=== PATIENT | female | born 1965 | race Caucasian/White ===

== ENCOUNTER 2017-06-21 09:16 | Observation (INO) | payer MEDICAID, SELFPAY ==
[2017-06-21] MEDS ORDERED: diphenhydrAMINE HCl 50 MG/ML 1 ML VIAL ONE (09:54)
[2017-06-21] MEDS ORDERED: Ondansetron HCl/PF 4 MG/2 ML Vial ONE (10:02)
[2017-06-21] MEDS ORDERED: Famotidine/PF 20 mg/2ml Vial ONE (10:03)
[2017-06-21] MEDS ORDERED: Prochlorperazine 10 MG/2 ML VIAL ONE (10:03)
[2017-06-21 10:06] LABS: Red Blood Cell (RBC) Count 4.76 mill/uL (4.20-5.40)
[2017-06-21 10:15] LABS: Lactic Acid - Sepsis 3.8 mmol/L (0.5-2.2)
[2017-06-21 10:19] LABS: ALT (SGPT) 12 U/L (8-55); AST (SGOT) 12 U/L (5-34); Alkaline Phosphatase 61 U/L (40-150); Anion Gap 18 mmol/L (10-20); BUN (Urea Nitrogen) 10 mg/dL (9.8-20.1); Bilirubin, Total 0.4 mg/dL (0.2-1.2); Calc. Creatinine Clearance 0 mL/min (70-130); Calcium 10.1 mg/dL (7.8-10.44); Carbon Dioxide 21 mmol/L (22-29); Chloride 107 mmol/L (98-107); Estimated GFR-MDRD 68; Lipase 12 U/L (8-78); Protein, Total 7.4 g/dL (6.0-8.3); Troponin I Less than 0.010 ng/mL (< 0.028)
[2017-06-21 10:21] LABS: Band 6 % (5-11); Neutrophil 85 % (42-75)
--- NOTE | 2017-06-21 11:17 | CT ---
CT ABDOMEN AND PELVIS WITHOUT CONTRAST: Date: 06/21/17 COMPARISON: 04/29/17. HISTORY: Abdominal pain with nausea and vomiting. Patient has a history of irritable bowel syndrome and gastr oparesis. TECHNIQUE: Multiple contiguous axial images were obtained in a CT with contrast. Coronal reformats were perform ed. FINDINGS: The patient is status post cholecystectomy. The liver, kidneys, adrenal glands, spleen, and pancreas are unremarkable, although evaluation is limited on this noncontrast examination. The reproductive organs are unremarkable. The large and small bowel are unremarkable. The appendix i s normal. No abdominal or pelvic lymphadenopathy seen. Degenerative changes are seen in the spine. The abdominal wall soft tissues and visualized inferior thorax are unremarkable. IMPRESSION: No evidence of acute intra-abdominal/pelvic abnormality. POS: [facility]
[2017-06-21 11:44] LABS: Bilirubin Small (Negative); Blood, Urine Trace (Negative); Glucose, Urine (Dipstick) Negative (Negative); Ketone, Urine 15 mg/dL (Negative); Nitrite Negative (Negative); Protein, Urine (Dipstick) 30 mg/dL (Neg-Trace)
[2017-06-21 11:53] LABS: RBC/HPF 0-3 HPF (0-3); WBC/HPF 0-3 HPF (0-3)
[2017-06-21 11:54] LABS: Bacteria/HPF 2+ HPF (None Seen)
[2017-06-21] MEDS ORDERED: Lorazepam 2 MG/ML VIAL ONE ×2 (12:03→13:18)
[2017-06-21 14:25] VITALS: BMI 41.7
[2017-06-21] MEDS ORDERED: Dextrose 5 %-0.45 % NaCl 1,000 ML IV SCH (14:30)
[2017-06-21] MEDS ORDERED: Acetaminophen 650 MG Suppository PR PRN (14:30)
[2017-06-21] MEDS ORDERED: Zolpidem Tartrate 5 MG TAB PO PRN (14:30)
[2017-06-21] MEDS ORDERED: Ondansetron HCl/PF 4 MG/2 ML Vial IVP PRN ×2 (14:30→16:00)
[2017-06-21] MEDS ORDERED: Metoclopramide HCl 10 MG/2 ML VIAL IVP PRN (14:33)
[2017-06-21] MEDS ORDERED: Promethazine HCl 25 MG SUPP PR PRN (14:34)
--- NOTE | 2017-06-21 15:30 | HP ---
PRIMARY CARE PROVIDER: Jarvis Brooke M.D. CHIEF COMPLAINT: Referred to [facility] by [facility] with intractable nausea and vomiting. HISTORY OF PRESENT ILLNESS: The patient started vomiting at 4:00 a.m. this morning. No hematemesis . She says she has generalized abdominal discomfort. She states her last bowel movement was 5 days ago, there was no blood. She states she feels hot and cold, but there is no documented fever, swea ts, or chills. She states she has these spells at least once a week, sometimes they last a few bairon deidra, sometimes few hours, sometimes longer. She has had them on a frequent basis since she was 12 y ears old. PAST MEDICAL HISTORY: No firm diagnosis. MEDICATIONS: She has taken Reglan as an outpatient, but discontinued it because of cost. She has t aken promethazine 25 mg q.6 hours, Zofran oral dissolving tablets 4 mg every 6 hours, metoclopramide 10 mg 3 times a day p.r.n. in the past. ALLERGIES: IODINATED CONTRAST. PAST SURGICAL HISTORY: Two surgeries on right ankle, cholecystectomy, two C-sections. FAMILY HISTORY: Mother is alive, present at bedside, diabetes mellitus. Father, no history. Broth er, one has lymphedema. She has a sister who in an MVA that was according to the mother, cocai ne-related. SOCIAL HISTORY: The patient is , smokes half a pack a day, drinks no alcohol, states she us es occasional weed for her stomach. REVIEW OF SYSTEMS: General: No fainting or headache, but she does have lightheadedness on arising. Eyes: No blurred vision, double vision or flashing lights. Ear, Nose and Throat: No ear pain or drainage. No nasal bleeding. No trouble swallowing. Cardiac: No chest pain, orthopnea or paroxy smal nocturnal dyspnea. Respirations: She gets a cough with her nausea and vomiting. She gets pascale rtness of breath with that, otherwise no wheezing or asthma. Gastrointestinal: See present illness . Genitourinary: No hematuria or dysuria. Musculoskeletal: She states her legs swell from the ri ght occasionally. No pain in her muscles. Neurologic: No strokes, seizures or focal weakness. Ps ychiatric: No history of psychiatric disease. Skin: No bruising, bleeding or rash. Heme/Lymph: No tender or swollen lymph nodes in axilla, inguinal or cervical area. PHYSICAL EXAMINATION: VITAL SIGNS: Temperature is 100.2, pulse 96, respirations 20, and blood pressure 174/99. GENERAL: Alert, cooperative, pleasant with a depressed affect. HEENT: Pupils are equal, round, and reactive to light. Extraocular movements are intact. Sclerae are white. Tympanic membranes are clear. Nose is clear. Oral mucous membranes are wet. Dental hy giene is good. NECK: Supple, without jugular venous distention, adenopathy or thyromegaly. CHEST: Clear to auscultation and percussion. HEART: Regular rate and rhythm. First and second heart sounds are clear. There are no murmurs or gallops. ABDOMEN: Soft. She does complain of tenderness everywhere did I touch her. Bowel sounds are silvina l, no palpable mass or hepatosplenomegaly. EXTREMITIES: Trace edema with no cyanosis or clubbing. SKIN: No bruising, bleeding or rash. HEME/LYMPH: No tender or swollen lymph nodes in axilla, inguinal or cervical area. PULSES: Carotid, radial, femoral, and dorsalis pedis pulses are intact. NEUROLOGICAL: Cranial nerves II through XII are intact. Deep tendon reflexes are symmetric. Moves all extremities. LABORATORY DATA: Comp metabolic profile normal except for a CO2 of 21 and a glucose 133. Initial l actate was 3.8, follow up is 2.2. White count is 24,000, platelet count 411,000, and hemoglobin is 14.7. Urine is clear. CT scan of her abdomen post-cholecystectomy, otherwise unremarkable, reviewe d by me. EKG: Regular sinus rhythm with marked baseline artifact making other interpretation diffi cult, reviewed by me. ADMITTING DIAGNOSES: 1. Nausea and vomiting, recurrent. 2. Leukocytosis. 3. Tobacco abuse. 4. THC abuse. PLAN: 1. IV fluids at 150 mL an hour normal saline. 2. IV Reglan q.6 hours, reinstitute p.o. Reglan when she is no longer vomiting. Repeat CBC and bas ic metabolic profile in the morning, blood cultures x2 and urine drug screen.
[2017-06-21] MEDS: Sodium Chloride 0.9% 1,000 ML IV SCH ×2 (15:43→22:33)
[2017-06-21] MEDS ORDERED: Ondansetron ODT 4 MG TAB SL PRN (16:00)
[2017-06-21 16:59] LABS: Amphetamine Not Detected (NotDetected); Methadone Not Detected (NotDetected); Methamphetamine Not Detected (NotDetected)
[2017-06-21] MEDS: Metoclopramide HCl 10 MG/2 ML VIAL IVP SCH ×2 (17:26→21:08)
[2017-06-21] MEDS: Metoclopramide HCl 10 MG TAB PO SCH ×2 (17:29→20:44)
[2017-06-21] MEDS ORDERED: Labetalol HCl 100 MG/20 ML VIAL SLOW IVP PRN (20:18)
[2017-06-21] MEDS ORDERED: Pantoprazole 40 MG VIAL IVP SCH (22:15)
[2017-06-21] MEDS: Nitroglycerin 2% Ointment 1 INCH/1 GM Packet TOP SCH (22:32)
[2017-06-21 22:50] LABS: Troponin I Less than 0.010 ng/mL (< 0.028)
[2017-06-22 01:47] LABS: Troponin I Less than 0.010 ng/mL (< 0.028)
[2017-06-22 04:39] LABS: #Eosinphils 0.1 thou/uL (0.0-0.7); #Lymphocytes 2.8 thou/uL (1.20-3.40); %Basophils 0.3 % (0.0-1.0); %Eosinophils 1.1 % (0.0-10.0); %Lymphocytes 25.4 % (21.0-51.0); %Monocytes 8.9 % (0.0-10.0); Hematocrit 33.4 % (36.0-47.0); Red Blood Cell (RBC) Count 3.56 mill/uL (4.20-5.40); White Blood Cell (WBC) Count 10.9 thou/uL (4.8-10.8)
[2017-06-22 04:48] LABS: Anion Gap 11 mmol/L (10-20); BUN (Urea Nitrogen) 6 mg/dL (9.8-20.1); Calc. Creatinine Clearance 160 mL/min (70-130); Calcium 8.4 mg/dL (7.8-10.44); Carbon Dioxide 24 mmol/L (22-29); Chloride 106 mmol/L (98-107); Estimated GFR-MDRD 84
[2017-06-22 04:54] LABS: Troponin I Less than 0.010 ng/mL (< 0.028)
[2017-06-22] MEDS: Nitroglycerin 2% Ointment 1 INCH/1 GM Packet TOP SCH (05:03)
[2017-06-22] MEDS: Sodium Chloride 0.9% 1,000 ML IV SCH (05:09)
[2017-06-22 08:14] VITALS: BP 127/76; TEMP 98.9
--- NOTE | 2017-06-22 08:28 | DIS ---
DATE OF ADMISSION: 06/21/2017 DATE OF DISCHARGE: 06/22/2017 PRIMARY CARE PROVIDER: Dr. Jarvis Brooke. FINAL DIAGNOSES: Cannabinoid hyperemesis syndrome, leukocytosis, tobacco abuse, THC abuse. DISCHARGE MEDICATIONS: Reglan 10 mg p.o. t.i.d. before meals, promethazine 25 mg p.o. q.6 hours p.r .n., Zofran oral dissolving tablets 4 mg p.o. q.6 hours p.r.n. ALLERGIES: To IODINE, IV CONTRAST. PENDING AT THE TIME OF DISCHARGE: Nothing. CODE STATUS: FULL. HOSPITAL COURSE: The patient referred to the [facility]. Patient states she has had weekly hyperemesis that she was 12 ye ars old. She was noted to have a no electrolyte abnormalities, but did have a leukocytosis. Of per tinent note in this patient who claims hyperemesis weekly. she weighs 245 pounds. Her initial urin e drug screen revealed benzodiazepines, which were given in the emergency room and THC. LABORATORY DATA: Chemistries: Comp metabolic profile normal. Lactic acid 3.8, down to 2.1 with fl uids. Initial white count of 24,000, follow up 10.9. Hemoglobin 14.7, platelet count 411,000. I have discussed hyperemesis syndrome from THC with the patient, she insists that cannot be the prob anita. FOLLOWUP: She is being discharged for followup with Dr. Jarvis Brooke in 1 week. CONSULTATIONS: None. PROCEDURES: None.
== END 2017-06-22 08:41 | disposition home or self-care (01) ==
LOC: SCSER 09:16 → 2SW 12:23
PROVIDERS: ADMIT Internal Medicine; ATTEND Internal Medicine
DX: R11.10 Vomiting, unspecified (principal); F12.10 Cannabis abuse, uncomplicated; F17.200 Nicotine dependence, unspecified, uncomplicated; D72.829 Elevated white blood cell count, unspecified; Z91.041 Radiographic dye allergy status; Z90.49 Acquired absence of other specified parts of digestive tract; Z98.890 Other specified postprocedural states; Z83.3 Family history of diabetes mellitus
CPT/HCPCS: 36415; 74176; 80048; 80053; 80306; 81003; 81015; 82553; 83605; 83690; 84484; 85025; 87040; 93005; 93010; 96361; 96374; 96375; 96376; A4216; C9113; G0378; J0780; J1200; J2060; J2405; J2765; S0028

== ENCOUNTER 2020-06-18 09:01 | Emergency (ER) | payer SELFPAY ==
[2020-06-18] MEDS ORDERED: Ondansetron PF 4 MG/2 ML Vial ONE (09:45)
[2020-06-18] MEDS ORDERED: Lorazepam 2 MG/ML VIAL ONE (09:49)
[2020-06-18] MEDS ORDERED: Famotidine/PF 20 mg/2ml Vial ONE (09:49)
[2020-06-18 10:09] LABS: #Lymphocytes 1.3 thou/uL (1.20-3.40); #Monocytes 0.6 thou/uL (0.11-0.59); #Neutrophils 16.9 thou/uL (1.40-6.50); %Basophils 0.1 % (0.0-1.0); %Eosinophils 0.2 % (0.0-10.0); %Monocytes 3.3 % (0.0-10.0); %Neutrophils 89.4 % (42.0-75.0); Hemoglobin 14.3 g/dL (12.0-16.0); Mean Corpuscular HGB CONC 33.4 g/dL (32.0-36.0); Mean Corpuscular Hemoglobin 31.2 pg (27.0-31.0); Mean Corpuscular Volume 93.4 fL (78.0-98.0); Mean Platelet Volume 7.3 fL (7.4-10.4); Platelet Count 399 thou/uL (130-400); RBC Distribution Width 12.3 % (11.5-14.5); Red Blood Cell (RBC) Count 4.59 mill/uL (4.20-5.40); White Blood Cell (WBC) Count 18.9 thou/uL (4.8-10.8)
--- NOTE | 2020-06-18 12:19 | CT ---
ABDOMEN AND PELVIC CT SCAN WITHOUT IV CONTRAST: HISTORY: Left lower quadrant pain, nausea, and vomiting. COMPARISON: 06/21/2017. FINDINGS: The lung bases appear clear. Small hiatal hernia with minimal nonspecific thickening of the distal e sophagus. Possibilities include that if inflammation, infection, or less likely neoplasm. Status po st cholecystectomy. Minimal hepatomegaly without ductal dilatation or focal mass. Pancreas, spleen, and adrenal glands are unremarkable. There is a very tiny, approximately 0.2 cm nonobstructing left renal calculus. No evidence for hydronephrosis. No solid or cystic renal mass. The ileocecal valv e region appears to be somewhat prominent and fatty. There is no CT evidence for acute appendicitis. A small fat-containing umbilical and left inguinal hernias. Unremarkable uterus and adnexal region s. The colon is empty and much of the colon given the appearance of some slight colonic wall thicke champ which may just be related to under distention. It would be difficult to exclude some colonic wa ll thickening and thus possible nonspecific colitis. IMPRESSION: Nonobstructing tiny left renal calculus, but no evidence for obstructing calculus. Small hiatal jessica ia with nonspecific distal esophageal wall thickening. Fat-containing left inguinal and umbilical he rnias, small. Nonspecific possible scattered colonic wall thickening which just be related to under distention. POS: [facility]
[2020-06-18 12:31] LABS: ALT (SGPT) 26 U/L (8-55); AST (SGOT) 30 U/L (5-34); Albumin 4.4 g/dL (3.5-5.0); Alkaline Phosphatase 61 U/L (40-110); Anion Gap 17 mmol/L (10-20); BUN (Urea Nitrogen) 15 mg/dL (9.8-20.1); Bilirubin, Total 0.5 mg/dL (0.2-1.2); Calc. Creatinine Clearance 0 mL/min (70-130); Calcium 9.4 mg/dL (7.8-10.44); Carbon Dioxide 22 mmol/L (22-29); Chloride 104 mmol/L (98-107); Estimated GFR-MDRD 62; Globulin 2.9 g/dL (2.4-3.5); Glucose 125 mg/dL (70-105); Lipase 9 U/L (8-78); Potassium 3.7 mmol/L (3.5-5.1); Protein, Total 7.4 g/dL (6.0-8.3); Sodium 139 mmol/L (136-145)
[2020-06-18 13:16] LABS: Bilirubin Negative (Negative); Blood, Urine Trace (Negative); Clarity Turbid (Clear); Glucose, Urine (Dipstick) Normal (Negative); Ketone, Urine Trace mg/dL (Negative); Leukocyte 250 Leu/uL (Negative); Mucous/LPF 1+ LPF (<2+); Nitrite Negative (Negative); Protein, Urine (Dipstick) 70 mg/dL (Neg-Trace); Specific Gravity, Urine 1.031 (1.002-1.036); Urobilinogen Normal mg/dL (Less than 2); pH, Urine 6.5 (5.0-9.0)
[2020-06-18 13:23] LABS: Amphetamine Not Detected (NotDetected); Barbiturates Screen Not Detected (NotDetected); Benzodiazepine Screen Detected (NotDetected); Cocaine Metabolite Screen Not Detected (NotDetected); Medtox Control Line Valid? VALID (VALID); Medtox Reader # READER 1; Methadone Not Detected (NotDetected); Methamphetamine Not Detected (NotDetected); Opiate Screen Not Detected (NotDetected); Oxycodone Screen Not Detected (NotDetected); Phencyclidine (PCP) Not Detected (NotDetected); THC/Cannabinoid Screen Detected (NotDetected); Tricyclic Screen Not Detected (NotDetected)
[2020-06-18 13:25] LABS: Bacteria/HPF 1+ HPF (None Seen)
[2020-06-18 13:32] LABS: Lactic Acid 1.8 mmol/L (0.5-2.2)
== END 2020-06-18 13:57 | disposition home or self-care (01) ==
LOC: ERS 09:01
DX: E86.0 Dehydration (principal); K31.84 Gastroparesis; D64.9 Anemia, unspecified; F17.210 Nicotine dependence, cigarettes, uncomplicated; K58.9 Irritable bowel syndrome, unspecified
CPT/HCPCS: 36415; 74176; 80053; 80306; 81003; 81015; 83605; 83690; 85025; 96361; 96374; 96375; J2060; J2405; S0028

== ENCOUNTER 2020-07-31 17:30 | Emergency (ER) | payer SELFPAY ==
[~2020-07-31 17:30] MED LIST: Iopamidol 370 76% 100 ML VIAL ONE
[2020-07-31] MEDS ORDERED: Morphine 4 MG/ML VIAL ONE (18:12)
[2020-07-31] MEDS ORDERED: Promethazine HCl 25 MG/ML VIAL ONE (18:14)
[2020-07-31 19:32] LABS: #Lymphocytes 1.1 thou/uL (1.20-3.40); #Monocytes 0.6 thou/uL (0.11-0.59); #Neutrophils 12.5 thou/uL (1.40-6.50); %Basophils 0.2 % (0.0-1.0); %Eosinophils 0.3 % (0.0-10.0); %Lymphocytes 7.7 % (21.0-51.0); %Monocytes 4.1 % (0.0-10.0); %Neutrophils 87.7 % (42.0-75.0); Hemoglobin 13.5 g/dL (12.0-16.0); Mean Corpuscular HGB CONC 32.3 g/dL (32.0-36.0); Mean Corpuscular Hemoglobin 32.3 pg (27.0-31.0); Mean Platelet Volume 7.5 fL (7.4-10.4); Platelet Count 305 thou/uL (130-400); RBC Distribution Width 11.9 % (11.5-14.5); Red Blood Cell (RBC) Count 4.18 mill/uL (4.20-5.40); White Blood Cell (WBC) Count 14.3 thou/uL (4.8-10.8)
[2020-07-31 19:42] LABS: Bilirubin Negative (Negative); Blood, Urine Negative (Negative); Clarity Clear (Clear); Glucose, Urine (Dipstick) Normal (Negative); Ketone, Urine 20 mg/dL (Negative); Leukocyte Negative Leu/uL (Negative); Nitrite Negative (Negative); Protein, Urine (Dipstick) Negative (Neg-Trace); Specific Gravity, Urine 1.043 (1.002-1.036); Urobilinogen Normal mg/dL (Less than 2); pH, Urine 5.5 (5.0-9.0)
[2020-07-31 19:45] LABS: Platelet Morphology Comment Appears Adequate; RBC Morphology Normal
[2020-07-31 20:09] LABS: ALT (SGPT) 18 U/L (8-55); AST (SGOT) 20 U/L (5-34); Albumin 4.4 g/dL (3.5-5.0); Alkaline Phosphatase 51 U/L (40-110); Anion Gap 16 mmol/L (10-20); BUN (Urea Nitrogen) 14 mg/dL (9.8-20.1); Bilirubin, Total 0.4 mg/dL (0.2-1.2); Calc. Creatinine Clearance 0 mL/min (70-130); Carbon Dioxide 19 mmol/L (22-29); Chloride 105 mmol/L (98-107); Estimated GFR-MDRD 66; Glucose 119 mg/dL (70-105); Lipase 13 U/L (8-78); Potassium 4.1 mmol/L (3.5-5.1); Protein, Total 7.4 g/dL (6.0-8.3); Sodium 136 mmol/L (136-145)
--- NOTE | 2020-07-31 20:23 | CT ---
CT ABDOMEN AND PELVIS WITH IV CONTRAST: Date: 07-31-2020 PROVIDED CLINICAL HISTORY: Abdominal pain FINDINGS: Comparison is made with a study dated 06-18-2020. The visualized lung bases are free of significant opacity. The solid abdominal organs demonstrate no significant abnormality. Post cholecystectomy changes are a gain seen. No bowel dilatation, inflammatory fat stranding, free fluid or free air apparent. The appe ndix appears normal. Scattered vascular calcifications are seen. Small hiatal hernia. The osseous structures demonstrate n o concerning lytic or blastic lesions. IMPRESSION: No evidence for an acute process. POS: [facility]
== END 2020-07-31 21:10 | disposition home or self-care (01) ==
LOC: ERS 17:30
DX: R10.12 Left upper quadrant pain (principal); R11.2 Nausea with vomiting, unspecified; D64.9 Anemia, unspecified; K31.84 Gastroparesis; Z87.891 Personal history of nicotine dependence
CPT/HCPCS: 36415; 74177; 80053; 81003; 83605; 83690; 85025; 96365; 96375; J2270; J2550; Q9967